=== PATIENT | female | born 1985 | race Caucasian/White ===

== ENCOUNTER 2021-10-11 14:59 | Emergency (ER) | payer OTHER ==
[2021-10-11 15:22] VITALS: BP 122/74; PULSE 72; TEMP 98.3; BMI 22.8
[2021-10-11] MEDS ORDERED: predniSONE 20 MG TABLET (UD) PO ONE (15:23)
== END 2021-10-11 16:19 | disposition home or self-care (01) ==
LOC: FER 14:59
DX: T80.89XA Other complications following infusion, transfusion and therapeutic injection, initial encounter (principal); R22.0 Localized swelling, mass and lump, head
CPT/HCPCS: 99283-25